=== PATIENT | male | born 1985 | race African-American/Black ===

== ENCOUNTER 2019-03-12 12:45 | Emergency (ER) | payer BC ==
--- NOTE | 2019-03-12 13:40 | RAD ---
EXAM: 3 views of the left ankle HISTORY: Ankle pain laterally after being fallen on. COMPARISON: None FINDINGS: 3 views of the left ankle shows no evidence of acute fracture or dislocation. Mild lateral soft tissue swelling is seen. No degenerative changes are present. IMPRESSION: No evidence of acute osseous abnormality.
== END 2019-03-12 14:15 | disposition home or self-care (01) ==
LOC: MADERS 12:45
DX: S93.492A Sprain of other ligament of left ankle, initial encounter (principal); X50.9XXA Other and unspecified overexertion or strenuous movements or postures, initial encounter